=== PATIENT | female | born 1950 | race Caucasian/White ===

== ENCOUNTER 2020-11-24 09:57 | Day surgery (SDC) | payer MEDICARE, MEDICAID ==
--- OUTSIDE RECORDS SUMMARY | 2020-11-11 08:30 | XMSREPORT | Referral Summary ---
:[address] [facility] Address [facility] [place] [address] Care Team Providers Name Role Phone Nay Mas PA-C Primary Care Provider Nay Mas PA-C Attributed Provider Reason for Referral Transitions of Care (Routine) Status Reason Specialty Diagnoses / Referred By Referred To Procedures Contact Contact New Request Patient Diagnoses History of colon polyps Alexus Mas, Health, [facility], [address] [place] [id number] Phone: Fax: Reason for Visit Reason Comments Pre-Op Exam Pre-op for colonoscopy Encounter Details Date Type Department Care Team Description 11/10/2020 Office Visit [facility] Alexus Mas, History of c olon polyps [facility] (Primary Dx) [address] [place] [address] [place] [address] Allergies Active Allergy Reactions Severity Noted Date Comments Metronidazole Unknown/Not Verified 07/08/2012 Nitrofurantoin Headache 07/08/2012 Sulfa Drugs Anaphylaxis (High) High 07/08/2012 documented as of this encounter (statuses as of 11/10/2020) Medications Medication Sig Dispensed Refills Start End Date Status Date aspirin 81 mg chewable Take 81 mg by 0 Active tablet mouth 1 time per day acetaminophen (TYLENOL) Take 325 mg by 0 Active 325 mg tablet mouth every 4 to 6 hours as needed Pramoxine HCl (VAGISIL Apply topically 0 Active ANTI-ITCH MEDICATED EXT) as needed calcium carbonate-vitamin Take 1 tablet by 0 Active D (CALTRATE 600 + D) 600 mouth 1 time per mg-400 unit tablet day Calcium Polycarbophil Take by mouth 0 Active (FIBER-CAPS PO) Cranberry-Vitamin Take 1 capsule by 0 Active C-Vitamin E 4200-20-3 mouth MG-MG-UNIT CAPS capsule docusate sodium (STOOL Take 100 mg by 0 Active SOFTENER) 100 mg capsule mouth 1 time a day as needed for constipation (Patient not currently taking) Coenzyme Q10 (CO Q 10) Take by mouth 1 0 Active 100 MG CAPS time per day Multiple Minerals Take by mouth 1 0 Active (CALCIUM/MAGNESIUM/ZINC time per day PO) levothyroxine 75 mcg Take 1 tablet (75 90 tablet 3 Active tabletIndications: mcg) by mouth 1 0 Hypothyroidism, time per day unspecified type atorvaSTATin (LIPITOR) 20 Take 1 tablet (20 90 tablet 3 Active mg tabletIndications: mg) by mouth 0 Pure hypercholesterolemia every night at bedtime lisinopril (PRINIVIL, Take 1 tablet (40 90 tablet 3 Active ZESTRIL) 40 mg mg) by mouth 1 0 tabletIndications: time per day Essential hypertension omeprazole (PRILOSEC) 20 TAKE 1 CAPSULE 90 capsule 2 Active mg capsuleIndications: (20 MG) BY MOUTH 0 Gastroesophageal reflux 1 TIME A DAY IN disease without THE MORNING esophagitis amLODIPine (NORVASC) 5 mg TAKE 1 TABLET (5 90 tablet 0 02 Active tabletIndications: MG) BY MOUTH 1 1 Essential hypertension TIME PER DAY documented as of this encounter (statuses as of 11/10/2020) Active Problems Problem Noted Date Obesity (BMI 35.0-39.9 without comorbidity) 11/11/2014 Essential hypertension 06/04/2003 Pure hypercholesterolemia 06/04/2003 Hypothyroidism 06/04/2003 Osteopenia of left lower leg 06/04/2003 Diverticulosis of large intestine 06/04/2003 Urge incontinence documented as of this encounter (statuses as of 11/10/2020) Resolved Problems Problem Noted Date Resolved Date Asymptomatic varicose veins 05/30/2010 12/31/2019 documented as of this encounter (statuses as of 11/10/2020) Immunizations Name Administration Dates Next Due FLU VACCINE HIGH DOSE 65YR+(Fluzone) 03/09/2020, 07/11/2016, 06/27/2015 H1N1 Vaccine 06/21/2009 Influenza Vaccine 04/22/2019 Influenza Vaccine,unspecified 04/24/2017 Moderna COVID-19 Vaccine 09/07/2020, 08/11/2020 Pneumococcal Conj PCV13 09/01/2015 Pneumococcal Polysaccharide PPSV23 12/29/2018, 07/17/2012 TDAP 06/02/2012 Zoster Live(Zostavax) 11/11/2014 documented as of this encounter Social History Tobacco Use Types Packs/Day Years Used Date Never Smoker Smokeless Tobacco: Never Used Alcohol Use Drinks/Week oz/Week Comments No Social Isolation Answer Date Recorded In a typical week, how many times do you More than three phyllis es a week 12/29/2018 talk on the phone with family, friends, or neighbors? How often do you get together with friends Once a week 12/31/2019 or relatives? How often do you attend uatsdin or More than 4 times per year 12/31/2019 restorationist services? Do you belong to any clubs or Yes 12/29/2018 organizations such as uatsdin groups, unions, fraternal or athletic groups, or school groups? How often do you attend meetings of the More than 4 times pe r year 12/31/2019 clubs or organizations you belong to? Are you now , , , Never 12/29/2018 , never or living with a partner? Physical Activity Answer Date Recorded On average, how many days per week do you engage in moderate to 0 days 12/29/2018 strenuous exercise (like walking fast, running, jogging, dancing, swimming, biking, or other activities that cause a light or heavy sweat)? On average, how many minutes do you engage in exercise at th is 0 min 12/29/2018 level? Stress Answer Date Recorded Do you feel stress - tense, restless, nervous, or anxious, N ot at all 12/29/2018 or unable to sleep at night because your mind is troubled all the time - these days? Financial Resource Strain Answer Date Recorded How hard is it for you to pay for the very basics like Not felice romeo hard 12/31/2019 food, housing, medical care, and heating? Food Insecurity Answer Date Recorded Within the past 12 months, you worried that your food would Never true 12/31/2019 run out before you got money to buy more. Within the past 12 months, the food you bought just didn't N ever true 12/31/2019 last and you didn't have money to get more. Transportation Needs Answer Date Recorded In the past 12 months, has lack of transportation kept you f rom No 12/31/2019 medical appointments or from getting medications? In the past 12 months, has lack of transportation kept you f rom No 12/31/2019 meetings, work, or getting things needed for daily living? 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 Is this person blind or does he/she have difficulty No 05/13/2019 seeing even when wearing glasses? Do you have difficulty with walking, balance, climbing No 12/31/2019 stairs, or had a fall in the last 3 months? documented as of this encounter Plan of Treatment Name Type Priority Associated Diagnoses Order S [facility] CLINIC REFERRAL Referral Routine History of colon polyps O rdered: 11/10/2020 ENDOSCOPY NON ONE CHART documented as of this encounter Implants Implanted Type Area Cloth Stretcher Device Shelf Model / Identifier Expiration Serial / Lot Date Iol Pre-Load Tecnis 21.5d N [id number] Ea1 - [id number] Ophthalm ology Left: [employer] & 01/28/2022 [id number] / Implanted: Qty: 1 on 05/13/2019 by Saleem Mirza MD at [facility] [id number] / N/A Description:Verified by Dr Garcia and OR staff Iol Pre-Load Tecnis 22.0d N [id number] Ea1 - [id number] Opht halmology Right: EYE [employer] & 04/08/2022 [id number] / Implanted: Qty: 1 on 05/20/2019 by Saleem Mirza MD at [facility] [id number] / N/A Description:Verified by Dr Garcia and OR staff documented as of this encounter Visit Diagnoses Diagnosis History of colon polyps - Primary Personal history of colonic polyps documented in this encounter
[2020-11-24] MEDS ORDERED: Lactated Ringers 1,000 ML IV SCH (10:00)
[2020-11-24] MEDS ORDERED: Sodium Chloride 0.9% 10 ML Syringe FLUSH PRN (10:00)
--- NOTE | 2020-11-24 11:10 | PCM.HPR ---
H & P Addendum review - H & P Addendum Review Date of Original H & P: 11/10/20 Date Reviewed: 11/24/20 Time Reviewed: 11:10 Patient was Examined: No Changes
[2020-11-24] MEDS ORDERED: Midazolam 1 MG/ML 2 ML SDV IV ONE (11:30)
[2020-11-24] MEDS ORDERED: Propofol 200 MG/20 ML SDV IV ONE (11:30)
--- NOTE | 2020-11-24 11:59 | PCM.OPNOTE ---
- General Post-Op/Procedure Note Date of Surgery/Procedure: 11/24/20 Operative Procedure(s): Colonoscopy with polypectomy Findings: 2 small polyps Sig tics Pre Op Diagnosis: FH colon Ca Post-Op Diagnosis: Same Anesthesia Technique: MAC Primary Surgeon: Gibran Turpin Anesthesia Provider: Christa Patel EBL in mLs: 0 Complications: None Condition: Good
[2020-11-24 12:09] VITALS: PULSE 57
[2020-11-24 12:20] VITALS: BP 123/57
--- NOTE | 2020-11-25 07:57 | OR ---
Date of Procedure: 11/24/2020 PREOPERATIVE DIAGNOSIS: Family history of colon cancer in brother. POSTOPERATIVE DIAGNOSES: 1. Colon polyps. 2. Sigmoid diverticulosis. PROCEDURE: Colonoscopy with polypectomy. ANESTHESIA: IV sedation. DESCRIPTION OF PROCEDURE: The patient was brought to the procedure room where she was placed on her left side and IV sedation administered. Digital rectal exam was performed which was normal. Colonoscope was inserted and advanced to the level of the cecum without difficulty. Cecal position was confirmed by identifying the appendiceal lumen and ileocecal valve. Prep was fair with some thick stool remaining throughout that was mostly irrigated and suctioned. Small polyps could have been missed. In the cecum, was a 5 mm sessile polyp removed with the hot biopsy forceps. The ascending colon was normal. In the transverse colon, was a similar size 5 mm polyp, also removed with a hot biopsy forceps and sent for pathology review. The descending colon was normal. Sigmoid colon had several diverticula present. Rectum was normal and retroflexion was normal. Air was removed and the scope withdrawn. The patient tolerated the procedure well and returned to recovery in stable condition. The patient will be notified of the pathology report when it returns. If either polyp is adenomatous, she could consider another colonoscopy in 5 years. If both polyps are hyperplastic, no further colon screenings would be necessary due to age. JANESSA AHUMADA MD /[id number]
== END 2020-11-24 12:55 | disposition home or self-care (01) ==
LOC: LL.SDS 09:57
PROVIDERS: ATTEND Surgery
DX: Z12.11 Encounter for screening for malignant neoplasm of colon (principal); D12.0 Benign neoplasm of cecum; D12.3 Benign neoplasm of transverse colon; K57.30 Diverticulosis of large intestine without perforation or abscess without bleeding; E78.00 Pure hypercholesterolemia, unspecified; E03.9 Hypothyroidism, unspecified; E66.9 Obesity, unspecified; N32.81 Overactive bladder; I12.9 Hypertensive chronic kidney disease with stage 1 through stage 4 chronic kidney disease, or unspecified chronic kidney disease; N18.30 Chronic kidney disease, stage 3 unspecified; E11.22 Type 2 diabetes mellitus with diabetic chronic kidney disease; Z88.2 Allergy status to sulfonamides; Z80.0 Family history of malignant neoplasm of digestive organs; Z79.899 Other long term (current) drug therapy; Z79.890 Hormone replacement therapy; Z79.82 Long term (current) use of aspirin; Z98.890 Other specified postprocedural states; Z88.8 Allergy status to other drugs, medicaments and biological substances; Z68.38 Body mass index [BMI] 38.0-38.9, adult
CPT/HCPCS: 00812; 88305; J2250; J2704; J7120